=== PATIENT | male | born 1985 | race Caucasian/White ===

== ENCOUNTER 2023-11-18 09:12 | Emergency (ER) | payer MEDICAID ==
[~2023-11-18] VITALS: Ht 188 cm; Wt 126.0 kg
[~2023-11-18 09:12] MED LIST: ASPI-986 PO; CLOP-31 PO; KEPP500 MT
[2023-11-18 09:16] VITALS: BP 159/102; PULSE 72; RESP 20; TEMP 98.7; O2SAT 100
== END 2023-11-18 13:36 | disposition home or self-care (01) ==
LOC: ER 09:12
DX: R56.9 Unspecified convulsions (principal); Z53.21 Procedure and treatment not carried out due to patient leaving prior to being seen by health care provider
CPT/HCPCS: 99281